=== PATIENT | male | born 1965 ===

== ENCOUNTER → 2020-06-09 | Outpatient (CLI) | payer SELFPAY ==
[~2020-06-09] MED LIST: AZIT250 PO; CIPR500 PO; HYDACE5 PO; METR500 PO
== END | disposition home or self-care (01) ==
LOC: LAB SHORT 10:41 → LAB 10:41
DX: L08.9 Local infection of the skin and subcutaneous tissue, unspecified (principal)
CPT/HCPCS: 87070; 87077; 87186; 87205

== ENCOUNTER → 2021-07-21 | Outpatient (CLI) | payer SELFPAY ==
[2021-07-26 10:13] LABS: Stool Occult Bld Immuno 1 Negative (NEGATIVE)
== END ==
LOC: LAB SHORT 12:00
PROVIDERS: Physician Assistant
DX: Z12.11 Encounter for screening for malignant neoplasm of colon (principal)
CPT/HCPCS: G0328

== ENCOUNTER → 2023-01-09 | Outpatient (CLI) | payer OTHER ==
[2023-01-18 08:20] LABS: Stool Occult Bld Immuno 1 Positive (NEGATIVE)
== END ==
LOC: PLD 05:15 → LAB SHORT 05:15
PROVIDERS: Physician Assistant
DX: Z12.11 Encounter for screening for malignant neoplasm of colon (principal)
CPT/HCPCS: G0328